=== PATIENT | male | born 1950 | race Caucasian/White ===

== ENCOUNTER → 2019-06-19 | Outpatient (CLI) | payer MEDICARE | LOC: OD 09:07 | PROVIDERS: ATTEND Otolaryngology | DX: J30.9 Allergic rhinitis, unspecified (principal) | CPT/HCPCS: 36415; 82785; 86003 ==

== ENCOUNTER 2019-09-10 08:30 | Day surgery (SDC) | payer MEDICARE ==
[2019-09-03 12:07] LABS: HEMATOCRIT 33.3 % (37.9-51.0); HEMOGLOBIN 11.3 g/dL (13.5-17.0); MEAN CORPUSCULAR HEMOGLOBIN 25.7 pg (27.0-33.4); MEAN CORPUSCULAR VOLUME 76 fl (80-97); PLATELET COUNT 268 10^3/uL (150-450); WHITE BLOOD COUNT 5.6 10^3/uL (4.0-10.5)
[2019-09-03 12:29] LABS: ANION GAP 11 (5-19); BLOOD UREA NITROGEN 23 mg/dL (7-20); CALCIUM 9.9 mg/dL (8.4-10.2); CARBON DIOXIDE 28 mmol/L (22-30); CHLORIDE 97 mmol/L (98-107); GLUCOSE 129 mg/dL (75-110); POTASSIUM 4.2 mmol/L (3.6-5.0)
--- NOTE | 2019-09-03 20:48 | EKG REPORT ---
SEVERITY:- ABNORMAL ECG - SINUS RHYTHM VS ATRIAL-PACED COMPLEXES NONSPECIFIC INTRAVENTRICULAR CONDUCTION DELAY PROBABLE LVH WITH SECONDARY REPOL ABNRM INFERIOR INFARCT, OLD CONSIDER ANTERIOR NE OLD : Confirmed by: Natasha Collins 03-Sep-2019 20:47:11
[~2019-09-10 08:30] MED LIST: ACETAMINOPHEN 325 MG TABLET PO PRN; CEFAZOLIN 1 GM/D5W RTU 1 GM/50 ML RTUPB IV ONE; CEFAZOLIN 1 GM/D5W RTU 1 GM/50 ML RTUPB IV PRN; DIPHENHYDRAMINE HCL 50 MG/ML VIAL IV PRN; FENTANYL CITRATE INJ/PF 100 MCG/2 ML AMPUL IV PRN; FENTANYL CITRATE INJ/PF 100 MCG/2 ML AMPUL ONE; LACTATED RINGERS 1000 ML IV PRN; LIDOCAINE 0.5% INJ-PF (5 MG/ML) 50 ML SDV SUBCUT PRN; MEPERIDINE HCL/PF INJ 25 MG/1 ML DISP.SYRIN IV PRN; MIDAZOLAM 2 MG/2 ML INJ ONE; OXYCODONE-ACETAMINOPHEN 5-325 MG TABLET PO PRN; PROMETHAZINE HCL INJ 25 MG/1 ML VIAL IV PRN; PROPOFOL INJ 200 MG/20 ML VIAL IV ONE
[2019-09-10 09:24] LABS: POTASSIUM 4.7 mmol/L (3.6-5.0)
[2019-09-10] MEDS ORDERED: LIDOCAINE 1%/EPINEPHRINE INJ 20 ML VIAL ONE (09:40)
--- NOTE | 2019-09-10 11:10 | Discharge Summary ---
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 Patient may take Tylenol Motrin as needed pain. Patient to follow-up with [facility] in 2 weeks Referrals: ADEOLA NUR MD [Primary Care Provider] - Discharge Diet: As Tolerated Discharge Activity: Activity As Tolerated Home Care Assistance: None Needed Report the Following to Your Physician Immediately: Shortness of Breath, Increase in Pain, Fever over 101 Degrees
--- NOTE | 2019-09-10 11:19 | Operative Report ---
Operative Report DATE OF SURGERY: 09/10/19 PREOPERATIVE DIAGNOSIS: Metastatic squamous cell carcinoma base of tongue POSTOPERATIVE DIAGNOSIS: Same OPERATION: 1. Esophagogastroduodenoscopy. 2. Placement of percutaneous endoscopic gastrostomy tube, 20 [place]ic endoeye. 3. Ultrasound directed insertion of single-lumen right internal jugular vein [id number] catheter. 4. Interpretation of intraoperative fluoroscopy SURGEON: DANICA ALMEIDA ANESTHESIA: LMAC TISSUE REMOVED OR ALTERED: None COMPLICATIONS: None ESTIMATED BLOOD LOSS: Scant INTRAOPERATIVE FINDINGS: See below PROCEDURE: The patient was taken from the preop holding her to the main operating room where LMAC anesthesia was induced. Arms were tucked, abdomen exposed, endoscopy team at bedside. Surgical plan and surgical timeout were conducted. A flexible upper endoscope was advanced to the patient's oropharynx unevent fully. The base of tongue tumor was appreciated. The scope was advanced uneventfully through the esophagus, through the stomach and then into the first and second portions of the duodenum. There was no evidence of bleeding, stricture, retained gastric contents. There was mild gastritis. No biopsy performed. A suitable site for placement of the PEG tube was chosen patient's left upper quadrant epigastric area. The skin was prepped with Betadine, transillumination of the anterior abdominal wall confirmed suitable transmission of light. The skin was anesthetized with 1% plain lidocaine. A hole was made in the skin with a #15 blade, and the 16-gauge Jelco needle was threaded through the anterior abdominal wall. The green wire was then threaded through the Jelco and retrieved with the endoscopic snare. The scope, snare and wire all intact were brought out through the patient's oropharynx. A 20 [place] Endo I pull out type PEG tube was then threaded over the wire and the wire and PEG tube pulled through the anterior abdominal wall by the field technical assistant. The wire was removed, feeding tube trimmed to the appropriate length, appropriate bolsters affixed, and tube adapter. Repeat upper endoscopy by Dr. Almeida was performed uneventfully. This showed feeding tube to be in good position, with appropriate degree of looseness, and no evidence of bleeding. Photos taken for the record. Scope was withdrawn the patient's oropharynx. He tolerated the procedure well. Arrangements were now made for port placement. The endoscopic equipment was removed in the room, and the right neck chest wall left neck and chest wall all prepped and draped in a sterile fashion. A second timeout was conducted Using ultrasound as a guide, the right internal jugular vein was identified, overlying skin anesthetized 1% plain lidocaine. A evelyn was made in the skin with a 15 blade, and micro needle and wire threaded into the right internal jugular vein. A suitable site for location of the port was chosen in the right subclavian position. Skin was anesthetized with plain lidocaine. A 3 cm incision was made with a knife, and a subcutaneous port pocket developed large enough to accommoda te a single-chamber port. The catheter was then trimmed to the appropriate length, tunneled between the 2 incisions, attached to the port with the plastic ring. Now under fluoroscopic guidance, the microwire was switched over to a conventional 0.030 guidewire. The 9 [place] dilator and introducer sheath were threaded over the guidewire, guidewire and dilator removed, and free catheter and threaded through the strip away sheath. Under fluoroscopic guidance, the stripper a sheath was removed leaving the catheter in satisfactory position in the right atrium. There was no evidence of ectopy, or evidence of kinking of the catheter by fluoroscopic guidance. Catheter was aspirated and flushed with heparinized saline. There was no bleeding from the port pocket. All wounds closed with a 3-0 Vicryl benzoin and Steri-Strips. Sponge and needle counts are correct. Patient tolerated procedure well, extubated, taken to recovery room in stable condition. Recommendations: 1. Patient will recover and be discharged home to the care of his 2. We will have discharge planning consulted, assist with PEG management. The physician field technical assistant, Ms. Veloz, provided assistance during this case by: Assisting with retracting tissue, instillation of local anesthesia and closure of skin incisions.
--- NOTE | 2019-09-10 11:36 | RADIOLOGY REPORT (SQ) ---
EXAM DESCRIPTION: FLUORO/CV PLACEMENT IMAGES COMPLETED DATE/TIME: 09/10/2019 11:24 am REASON FOR STUDY: PORTACATH PLCMT RIGHT SIDE ASSISTED WITH FLUORO IN OR C01 MALIGNANT NEOPLASM OF B ASE OF TONGUE Z79.899 OTHER JAIL (CURRENT) DRUG THERAPY COMPARISON: None. FLUOROSCOPY TIME: 0.1 minute Spot images saved to PACS. TECHNIQUE: Intra-operative images acquired during surgical procedure to evaluate progress. NUMBER OF IMAGES: 3 LIMITATIONS: None. FINDINGS: Fluoroscopy was provided for intraoperative procedure. Please refer to the operative repo rt for further discussion. IMPRESSION: IMAGE(S) OBTAINED DURING PROCEDURE. COMMENT: Quality ID [id number]: Final reports for procedures using fluoroscopy that document radiation exp osure indices, or exposure time and number of fluorographic images (if radiation exposure indices are not available) Please consult full operative report of the attending physician for description of the procedure. TECHNICAL DOCUMENTATION: JOB ID: [id number] [employer]- All Rights Reserved Reading location - IP/workstation name: [email or web address]
[2019-09-10 13:27] VITALS: BP 121/73
[2019-09-10] MEDS ORDERED: LIDOCAINE 2% INJ-PF (20 MG/ML) 2 ML AMPUL ONE (13:51)
== END 2019-09-10 12:35 | disposition home or self-care (01) ==
LOC: OROUT 08:30
PROVIDERS: ATTEND Surgery
DX: C01 Malignant neoplasm of base of tongue (principal); E07.9 Disorder of thyroid, unspecified; I10 Essential (primary) hypertension; E11.9 Type 2 diabetes mellitus without complications; L40.50 Arthropathic psoriasis, unspecified; I25.2 Old myocardial infarction; Z95.1 Presence of aortocoronary bypass graft; Z95.810 Presence of automatic (implantable) cardiac defibrillator; Z79.899 Other long term (current) drug therapy; Z79.82 Long term (current) use of aspirin; Z79.84 Long term (current) use of oral hypoglycemic drugs; Z88.0 Allergy status to penicillin; Z88.2 Allergy status to sulfonamides
CPT/HCPCS: 43246; 93005; 36415 ×2; 82947; 84132; 85027; 80048; 77001; 93010; 00731; 36561; C1752; C1788; U0003; J2250; J0690; J3010; J3490 ×2; J2704; J1642; 731; 87635

== ENCOUNTER → 2020-02-18 | Outpatient (CLI) | payer MEDICARE | LOC: OD 10:18 | PROVIDERS: ATTEND Obstetrics & Gynecology | DX: I50.9 Heart failure, unspecified (principal) | CPT/HCPCS: 36415; 83880 ==